=== PATIENT | male | born 1970 | race Hispanic/Latino ===

== ENCOUNTER 2022-11-14 22:34 | Emergency (ER) | payer OTHER ==
[~2022-11-14] VITALS: Ht 177.8 cm; Wt 2.6 kg
[2022-11-15 00:29] VITALS: BP 132/70
== END 2022-11-15 00:33 | disposition home or self-care (01) ==
LOC: EDH 22:34
DX: I10 Essential (primary) hypertension (principal); H11.32 Conjunctival hemorrhage, left eye; E78.00 Pure hypercholesterolemia, unspecified
CPT/HCPCS: 99281

== ENCOUNTER 2024-03-04 19:40 | Emergency (ER) | payer OTHER ==
[~2024-03-04] VITALS: Ht 177.8 cm; Wt 146.5 kg
[2024-03-04 20:27] VITALS: BP 125/75; PULSE 85; RESP 20
[2024-03-04 21:28] LABS: HEMATOCRIT 48.9 % (42-54); MEAN CORPUSCULAR HGB CONC 33.5 g/dL (32.0-36.0); MEAN CORPUSCULAR VOLUME 86.4 fL (79-99); PLATELET COUNT (AUTO) 200 K/uL (130-400); RED BLOOD CELL COUNT(AUTO) 5.66 MIL/uL (4.50-6.20); RED CELL DISTRIBUTION WIDTH 13.4 % (11.0-15.5); WHITE BLOOD COUNT (AUTO) 10.6 K/uL (4.8-10.8)
[2024-03-04 21:40] LABS: CREATININE 1.1 mg/dL (0.5-1.3); POTASSIUM 3.9 mmol/L (3.5-5.1)
[2024-03-04 21:51] LABS: LYMPHOCYTES % (MANUAL) 14 % (22-44); MAN.DIFF COMMENT-IMPRESSION MANUAL DIFFERENTIAL; MONOCYTES % (MANUAL) 11 % (2-9); PLATELET MORPHOLOGY COMMENT ADEQUATE; REACTIVE LYMPHOCYTES 2 % (0-0); SEGMENTED NEUTROPHILS % 73 % (40-70); TOTAL CELLS COUNTED 100
[2024-03-04] MEDS: TRIAMCINOLONE ACETONIDE 40 MG/ML 1ML VIAL IM ONE (22:34)
[2024-03-04] MEDS: ORPHENADRINE CITRATE 30 MG/ML ML IM ONE (22:35)
[2024-03-04] MEDS ORDERED: NAPR-1180 PO (22:54)
== END 2024-03-04 23:03 | disposition home or self-care (01) ==
LOC: EDH 19:40
DX: G56.00 Carpal tunnel syndrome, unspecified upper limb (principal); R22.9 Localized swelling, mass and lump, unspecified; E78.00 Pure hypercholesterolemia, unspecified; I10 Essential (primary) hypertension
CPT/HCPCS: 99284; 80048; 85025; 36415; 73120; 96372 ×2; J3301; J2360

== ENCOUNTER 2025-10-04 06:32 | Emergency (ER) | payer OTHER ==
[~2025-10-04] VITALS: Ht 177.8 cm; Wt 141.2 kg
[~2025-10-04 06:32] MED LIST: NAPR-1180 PO
[2025-10-04] MEDS: MAG/ALUM/SIMETH 30 ML UDCUP ONE (06:47)
[2025-10-04] MEDS: LIDOCAINE HCL 2% VISCOUS 15 ML UDCUP ONE (06:47)
[2025-10-04] MEDS: MAG/ALUM/SIMETH 30 ML UDCUP PO ONE (06:49)
[2025-10-04] MEDS: LIDOCAINE HCL 2% VISCOUS 15 ML UDCUP PO ONE (06:49)
--- NOTE | 2025-10-04 06:57 | ERN ---
General Chief Complaint: Anxiety/Panic Attack Stated Complaint: ANXIETY Time Seen by MD: 06:55 History of Present Illness Initial Comments 55-year-old male here for evaluation of anxiety after having eaten tacos last night. Patient states that after he ate tacos he felt a burning sensation in his chest felt anxious and decided to come to the emergency room after not being able to sleep secondary to the burning sensation. Similar symptoms happened once before in the past with relief after medications however he did not have any medications at home thus he decided to come to the emergency room. Allergies: Coded Allergies: No Known Allergies (Unverified Allergy, Unknown, 11/14/22) Home Meds Active Scripts Naproxen (Naprosyn) 500 Mg Tablet, 500 MG PO BIDPC for 10 Days, #20 TAB 0 Refills Prov:CLAUDIO GOMEZ MD 03/04/24 Past Medical History Past Medical History: High Cholesterol Medical History Other: CARPAL TUNNEL Past Surgical History: Other, None Surgical History Other: CARPAL TUNNEL Family History Family History: Negative Social History Social History: Negative, Lives with family Review of Systems: was completed, & the rest were negative. Physical Exam Physical Exam Dictation GENERAL APPEARANCE NAD, activity normal for age, well developed/ well nourished, no cyanosis, pallor, or diaphoresis. EYES lids/conjunctiva normal. EARS/NOSE/THROAT Mucous membranes moist, nares normal, lips/teeth normal uvula midline without oral pharyngeal erythema, exudate or swelling TMs normal bilaterally. No lymphangitis/lymphedema. HEAD/NECK normocephalic atraumatic, no facial trauma, neck is supple. RESPIRATORY respiratory effort normal, speaks in full sentences, no tripod position, no accessory muscle use. Lungs clear to auscultation without rhonchi, wheezes, rales CARDIAC Regular rate and rhythm, no edema. ABDOMINAL Soft, ND/NT. No evidence of fluid wave. No pulsatile masses on exam, rebound tenderness, Pardo sign or pain over Mcburney's point. MUSCLES/EXTREMITIES No abnormal range of motion, no swelling. SKIN Warm, pink and dry. No rashes, dermatoses, petechiae or lesions. NEUROLOGICAL Speech is clear and appropriate. Normal level of consciousness. Gai t and coordination are normal. 5/5 strength in all extremities. PSYCH Normal mood and affect. Judgement/competence is appropriate Results Laboratory and Microbiology Lab and Micro Result Laboratory Tests Test 10/04/25 06:46 Urine Color LIGHT-YELLOW (YELLOW) Urine Appearance CLEAR (CLEAR) Urine pH 7.5 (5.0-8.0) Urine Specific Chama 1.016 (1.001-1.031) Urine Protein NEGATIVE mg/dL (NEGATIVE) Urine Glucose (UA) NEGATIVE mg/dL (NEGATIVE) Urine Ketones NEGATIVE mg/dL (NEGATIVE) Urine Occult Blood NEGATIVE (NEGATIVE) Urine Nitrate NEGATIVE (NEGATIVE) Urine Bilirubin NEGATIVE mg/dL (NEGATIVE) Urine Urobilinogen 0.2 mg/dL (0.2-1.0) Urine Leukocyte Esterase NEGATIVE Wandy/uL Labs Reviewed?: Yes EKG/XRAY/US/CT/MRI EKG Comment 10/04/2025 time 7:25 a.m. Ventricular rate 76 Sinus rhythm [place] [address] wave elevation or depression MDM MDM: Differential diagnosis:, GERD, anxiety Rationale: Tests considered and ordered secondary to shared decision making include: Previous outside records reviewed: Old ER visits. Risk of complication and/or morbidity or mortality of patient management: None Medications-Per medication reconciliation Need for hospitalization: Patient does not meet criteria for hospitalization. Need for emergency major/minor surgery: No Patient is a 55-year-old gentleman coming in complaining of anxiety. Patient states that he felt anxiety since the morning and came in for further evaluation by time he got here he states it feels a little bit better. Received a GI cocktail EKG did not show any acute findings. Patient states he feels much better we will be discharged in stable condition. ED Course Orders Procedure Category Date Status Time Urinalysis Profile LAB 10/04/25 Complete 06:42 Lidocaine Hcl 2% PHA 10/04/25 Complete Viscous (Lidocaine Hcl 07:00 Mag/Alum/Simeth 30ml PHA 10/04/25 Complete (Maalox Plus 30ml) 07:00 Mag/Alum/Simeth 30ml PHA 10/04/25 Complete (Maalox Plus 30ml) 06:45 Lidocaine Hcl 2% PHA 10/04/25 Complete Viscous (Lidocaine Hcl 06:45 12 Lead Ekg Tracing- EKG 10/04/25 Logged Technical 07:08 Current Medications Medications (Trade) Dose Ordered Sig/Home Route PRN Reason Start Time Stop Time Status Last Admin Dose Admin Al Hydroxide/Mg Hydroxide (MAALox PLUS 30ML) 30 ml ONCE ONCE PO 10/04/25 07:00 10/04/25 07:01 DC 10/04/25 06:49 Al Hydroxide/Mg Hydroxide (MAALox PLUS 30ML) 30 ml STK-MED ONCE .ROUTE 10/04/25 06:45 10/04/25 06:45 DC Lidocaine HCl (Lidocaine HCl 2% Viscous) 10 ml ONCE ONCE PO 10/04/25 07:00 10/04/25 07:01 DC 10/04/25 06:49 Lidocaine HCl (Lidocaine HCl 2% Viscous) 15 ml STK-MED ONCE .ROUTE 10/04/25 06:45 10/04/25 06:45 DC Vital Signs Date Time Temp Pulse Resp B/P (MAP) Pulse Ox O2 Delivery O2 Flow Rate FiO2 10/04/25 06:40 98.1 88 18 132/85 98 Room Air* 0 21 10/04/25 06:36 98.1 88 18 132/85 99 Room Air DX & DISP Disposition: Discharge Departure Impression: Primary Impression: Anxiety Additional Impression: GERD (gastroesophageal reflux disease) Condition: Stable Scripts Pantoprazole Sodium (Protonix) 40 Mg Ectab 1 TAB PO DAILY for 30 Days, #30 TAB 0 Refills Prov: PATRICK RAMÍREZ MD 10/04/25 Additional Instructions: FOLLOW-UP WITH PRIMARY CARE PROVIDER IN 1 TO 2 DAYS. TAKE MEDICATIONS DIRECTED HERE IN THE EMERGENCY ROOM. OKAY TO CONTINUE HOME MEDICATIONS UNLESS OTHERWISE DISCUSSED DURING YOUR VISIT IN THE EMERGENCY ROOM TODAY. RETURN TO YOUR NEAREST EMERGENCY ROOM IF SYMPTOMS WORSEN OR IF THERE IS NO IMPROVEMENT. CALL 911 IF YOU NEED IMMEDIATE ASSISTANCE. TAKE TYLENOL [id number] NEEDED AND IF NO CONTRAINDICATIONS ARE PRESENT. INCREASE ORAL HYDRATION. A WOUND CULTURE OR URINE CULTURE WAS ORDERED HERE IN THE EMERGENCY ROOM DEPARTMENT PLEASE FOLLOW-UP WITH PRIMARY CARE PROVIDER AND ADVISE THEM TO GET REPORTS FROM OUR FACILITY. IF YOU HAD ANY MUNIRA WRAP/SPLINTS THAT WERE APPLIED HERE, PLEASE DO NOT REMOVE THEM UNTIL YOU SEE YOUR PRIMARY CARE OR SPECIALTY. Referrals: Referrals: DOROTHEA VAZQUEZ MD (PCP) Time of Disposition: 07:42 JJ MTZ MD Oct 04, 2025 06:57 PATRICK RAMÍREZ MD Oct 04, 2025 07:43
[2025-10-04 07:11] LABS: APPEARANCE,URINE CLEAR (CLEAR); GLUCOSE, URINE (UA) NEGATIVE (NEGATIVE); LEUKOCYTE ESTERASE ,URINE NEGATIVE Leu/uL (NEGATIVE); NITRATE,URINE NEGATIVE (NEGATIVE); OCCULT BLOOD,URINE NEGATIVE (NEGATIVE)
[2025-10-04 07:20] LABS: ADD UA MICROSCOPIC NO
[2025-10-04 07:33] VITALS: BP 148/90; PULSE 78; RESP 18; TEMP 98.2; O2SAT 97
[2025-10-04] MEDS ORDERED: PANT40TA55 PO (07:43)
--- NOTE | 2025-10-04 14:52 | EKG ---
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
== END 2025-10-04 07:56 | disposition home or self-care (01) ==
LOC: EDH 06:32
DX: F41.9 Anxiety disorder, unspecified (principal); K21.9 Gastro-esophageal reflux disease without esophagitis; E78.00 Pure hypercholesterolemia, unspecified; Z98.890 Other specified postprocedural states
CPT/HCPCS: 81003; 93005; 99284